=== PATIENT | female | born 1975 | race Caucasian/White ===

== ENCOUNTER 2017-03-30 15:58 | Emergency (ER) | payer BC ==
[~2017-03-30] VITALS: Ht 165.1 cm; Wt 127.0 kg
[2017-03-30] MEDS ORDERED: Ketorolac 30mg Inj IM ONE (16:15)
[2017-03-30] MEDS ORDERED: DiphenhydrAMINE 50mg/ml Inj IM ONE (16:15)
[2017-03-30] MEDS ORDERED: Metoclopramide 10mg/2ml Inj IM ONE (16:15)
[2017-03-30 17:28] VITALS: BP 129/83
[2017-03-30] MEDS ORDERED: ZOFRAN4 M3 ORAL (17:43)
[2017-03-30] MEDS ORDERED: IBUPROFEN600 MG ORAL (17:43)
[2017-03-30 17:55] VITALS: BP 129/83
--- NOTE | 2017-03-30 21:12 | Emergency Room Report ---
History of Present Illness General Chief Complaint: Headache Source: Patient Present Illness HPI The patient is a 41-year-old female with a history of migraine headaches presenting for headache x 2 days. Described as a 9/10 throbbing sensation to the right side of the head as well as the right eye. She admits to photophobia. She states that this does feel like migraines in the past which is usually resolved with Tylenol but has not helped today. Pain does not radiate. She denies falling or any trauma. She denies any other symptoms including nausea, vomiting, fever, chills, neck pain or stiffness, CP, SOB Allergies: Coded Allergies: No Known Allergies (Unverified , 03/30/17) Patient History Past Medical History: see triage record Pertinent Family History: none Last Menstrual Period: 03/10/17 Now: No Reviewed Nursing Documentation: PMH: Agreed, PSxH: Agreed Nursing Documentation-PMH Past Medical History: No History, Except For Review of Systems All Other Systems: negative except mentioned in HPI Physical Exam Vital Signs Date Time Temp Pulse Resp B/P Pulse Ox O2 Delivery O2 Flow Rate FiO2 03/30/17 16:05 98.2 70 18 129/83 100 Room Air Sp02 EP Interpretation: reviewed, normal General Appearance: no apparent distress, alert, GCS 15, non-toxic Head: normocephalic, atraumatic Eyes: bilateral eye PERRL, bilateral eye normal inspection ENT: hearing grossly normal, normal pharynx, no angioedema, normal voice, uvula midline Neck: full range of motion, supple/symm/no masses Respiratory: chest non-tender, lungs clear, normal breath sounds, speaking full sentences Musculoskeletal: back normal, gait/station normal, normal range of motion, non- tender Neurologic: alert, oriented x3, responsive, motor strength/tone normal, sensory intact, normal gait, speech normal Psychiatric: judgement/insight normal, memory normal, mood/affect normal, no suicidal/homicidal ideation Skin: normal color, no rash, warm/dry, well hydrated Lymphatic: no adenopathy Medical Decision Making PA Attestation Dr. Gage is my supervising physician. Patient management was discussed with my supervising physician Diagnostic Impression: Primary Impression: Migraine Qualified Codes: G43.909 - Migraine, unspecified, not intractable, without status migrainosus ER Course The patient is a 41-year-old female with a history of migraine headaches presenting for headache Differential diagnoses include but not limited to Migraine, tension headache, cluster ARELLANO, ICH PE:vitals WNL. NAD A&Ox4 Head NC/AT. Non tender. PERRL. EOMI. Neck is soft and supple. Full AROM. Non tender. The patient is given IM Toradol, Benadryl, and Reglan and states that pain has completely resolved. She will be discharged home with a prescription for motrin and zofran and will FU with PMD. ER precautions given Last Vital Signs Date Time Temp Pulse Resp B/P Pulse Ox O2 Delivery O2 Flow Rate FiO2 03/30/17 17:55 98.2 18 129/83 100 Room Air 03/30/17 16:05 70 Status: improved Disposition: HOME, SELF-CARE Condition: Improved Scripts Ondansetron* (ZOFRAN*) 4 Mg Tablet 4 MG ORAL Q6H Y for Nausea & Vomiting, #10 TAB Prov: CESAR CHU.A. 03/30/17 Ibuprofen* (MOTRIN*) 600 Mg Tablet 600 MG ORAL Q6H Y for For Pain, #30 TAB Prov: CESAR CHU P.A. 03/30/17 Referrals: [facility],REFERRING (PCP) Patient Instructions: Migraine Headache Additional Instructions: I discussed my findings with the patient. All questions and concerns have been answered. Treatment and medication compliance have been addressed. I advised the patient that they need to follow up with PMD in 3-5 days. Return to ED if symptoms worsen, new symptoms arise such as fever, neck pain, dizziness, or if needed for any reason. Patient verbalized understanding of discharge instructions. CESAR CHU March 30, 2017 21:12
== END 2017-03-30 17:55 | disposition home or self-care (01) ==
LOC: EMR 17:54
DX: G43.909 Migraine, unspecified, not intractable, without status migrainosus (principal)
CPT/HCPCS: 96372; 99284; J1200; J1885; J2765; 99283

== ENCOUNTER 2017-12-12 22:26 | Emergency (ER) | payer BC ==
[~2017-12-12] VITALS: Ht 165.1 cm; Wt 127.0 kg
[~2017-12-12 22:26] MED LIST: IBUPROFEN600 MG ORAL; ZOFRAN4 M3 ORAL
[2017-12-12] MEDS ORDERED: CYMBALTA30 MG ORAL (22:39)
[2017-12-12 23:10] VITALS: BP 162/96
[2017-12-12] MEDS ORDERED: Metoclopramide 10mg/2ml Inj ONE (23:10)
[2017-12-12] MEDS ORDERED: Ketorolac 30mg Inj IM ONE (23:15)
[2017-12-12] MEDS ORDERED: DiphenhydrAMINE 50mg/ml Inj IM ONE (23:15)
[2017-12-13 00:20] VITALS: BP 143/87
[2017-12-13] MEDS ORDERED: FIORICET1 EA ORAL (00:20)
[2017-12-13 00:35] VITALS: BP 143/87
--- NOTE | 2017-12-13 01:44 | Emergency Room Report ---
History of Present Illness General Chief Complaint: Headache Source: Patient Present Illness HPI 42-year-old female presents ED for evaluation. Patient states having migraine headache for the last few days. Typical of her migraine but this time unrelieved with [id number] medication. Throbbing, 8/10, nonradiating. In the back of her head which is typical. Denies any neck stiffness. Denies any fevers or chills. Denies photophobia or blurry vision. Denies nausea or vomiting. No other aggravating relieving factors. Denies any other associated symptoms Allergies: Coded Allergies: No Known Allergies (Unverified , 03/30/17) Patient History Past Medical History: none Past Surgical History: none Pertinent Family History: none Social History: Denies: smoking, alcohol use, drug use Last Menstrual Period: 11/28/17 Now: No Immunizations: UTD Reviewed Nursing Documentation: PMH: Agreed, PSxH: Agreed Nursing Documentation-PMH Past Medical History: No History, Except For Hx Cardiac Problems: No - Migraines Review of Systems All Other Systems: negative except mentioned in HPI Physical Exam Vital Signs Date Time Temp Pulse Resp B/P (MAP) Pulse Ox O2 Delivery O2 Flow Rate FiO2 12/12/17 22:34 97.9 81 15 162/96 97 Room Air Sp02 EP Interpretation: reviewed, normal General Appearance: no apparent distress, alert, GCS 15, non-toxic, obese Head: normocephalic, atraumatic Eyes: bilateral eye normal inspection, bilateral eye PERRL ENT: hearing grossly normal, normal pharynx, no angioedema, normal voice Neck: full range of motion, supple, no meningismus, supple/symm/no masses Respiratory: chest non-tender, lungs clear, normal breath sounds, speaking full sentences Cardiovascular #1: regular rate, rhythm, no edema Cardiovascular #2: 2+ carotid (R), 2+ carotid (L), 2+ radial (R), 2+ radial (L) , 2+ dorsalis pedis (R), 2+ dorsalis pedis (L) Gastrointestinal: normal bowel sounds, non tender, soft, non-distended, no guarding, no rebound Rectal: deferred Genitourinary: normal inspection, no CVA tenderness Musculoskeletal: back normal, gait/station normal, normal range of motion, non- tender Neurologic: alert, oriented x3, responsive, motor strength/tone normal, sensory intact, speech normal Psychiatric: judgement/insight normal, memory normal, mood/affect normal, no suicidal/homicidal ideation Reflexes: 3+ bicep (R), 3+ bicep (L), 3+ tricep (R), 3+ tricep (L), 3+ knee (R) , 3+ knee (L) Skin: normal color, no rash, warm/dry, well hydrated Lymphatic: no adenopathy Medical Decision Making Diagnostic Impression: Primary Impression: Migraine Qualified Codes: G43.909 - Migraine, unspecified, not intractable, without status migrainosus ER Course Hospital Course 42-year-old female presents to ED complaining of headaches, h/o migraine Differential diagnoses include: tension headache, migraine, dehydration, intracranial bleed Clinical course Patient placed on stretcher. After initial history and physical I ordered Reglan, Toradol and Benadryl. Upon reassessment patient states pain has improved. Patient feels better wishes to go home. Given the lack of fever, nuchal rigidity or neurological findings my suspicion for intracranial pathology is low patient be safely discharged to home. i. I feel this is a highly complex case requiring extensive working including EKG/Rhythm strip, Xray/CT/US, Blood/urine lab work, repeat exams while in ED, and administration of strong opiates/narcotics for pain control, admission to hospital or close patient follow up. Diagnosis - migraine stable and discharged to home with Rx Fiorcet. f/up with PMD. return to ED if symptoms recur/worsen. Last Vital Signs Date Time Temp Pulse Resp B/P (MAP) Pulse Ox O2 Delivery O2 Flow Rate FiO2 12/13/17 00:35 97.9 72 15 143/87 97 Room Air Status: improved Disposition: HOME, SELF-CARE Condition: Stable Scripts Acetamin/Butalbital/Caffeine* (FIORICET*) 1 Ea Tab 1 TAB ORAL Q4H, #20 TAB Prov: KISHAN WAGNER M.D. 12/13/17 Patient Instructions: Migraine Headache KISHAN WAGNER M.D. Dec 13, 2017 01:44
== END 2017-12-13 00:35 | disposition home or self-care (01) ==
LOC: EMR 23:05
DX: G43.909 Migraine, unspecified, not intractable, without status migrainosus (principal)
CPT/HCPCS: 96372; 99284; J1200; J1885; J2765

== ENCOUNTER 2017-12-14 10:20 | Emergency (ER) | payer BC ==
[~2017-12-14] VITALS: Ht 165.1 cm; Wt 127.0 kg
[~2017-12-14 10:20] MED LIST changes: +CYMBALTA30 MG ORAL; +FIORICET1 EA ORAL
--- NOTE | 2017-12-14 10:58 | Emergency Room Report ---
History of Present Illness General Chief Complaint: Headache Source: Patient, Medical Record Present Illness HPI 42-year-old female p/w ARELLANO for 1 days. Patient describes ARELLANO as gradual in onset, throbbing in nature, localized to right-sided head, non-radiating, constant, mild/moderate in severity. NO photophobia, phonophobia. Patient has a history of headaches and states this ARELLANO feels similar to previous episodes. States that she has been supposed to see a neurologist but hasn't been able to see him. Denies fever, chills, neck pain, blurry vision, motor/sensory weakness. States that she was seen in the emergency room not to long ago, felt better after IM medication, states that she went to work today, had a great deal of stress, which triggered her headache again Allergies: Coded Allergies: No Known Allergies (Unverified , 03/30/17) Patient History Past Medical History: see triage record Past Surgical History: none Pertinent Family History: none Last Menstrual Period: Three weeks ago Now: No Reviewed Nursing Documentation: PMH: Agreed, PSxH: Agreed Review of Systems All Other Systems: negative except mentioned in HPI Physical Exam Vital Signs Date Time Temp Pulse Resp B/P (MAP) Pulse Ox O2 Delivery O2 Flow Rate FiO2 12/14/17 10:22 97.8 86 24 136/79 100 Room Air 97.9 Sp02 EP Interpretation: reviewed, normal General Appearance: normal inspection, well appearing, no apparent distress, alert, GCS 15, non-toxic Head: normocephalic, atraumatic Eyes: bilateral eye normal inspection, bilateral eye PERRL, bilateral eye EOMI ENT: normal ENT inspection, normal pharynx, normal voice, moist mucus membranes Neck: normal inspection, full range of motion, supple Respiratory: normal inspection, lungs clear, normal breath sounds, no respiratory distress, no retraction, no wheezing, speaking full sentences, chest symmetrical Cardiovascular #1: normal inspection, regular rate, rhythm, no edema, normal capillary refill Cardiovascular #2: 2+ radial (R), 2+ radial (L) Gastrointestinal: normal inspection, non tender, soft, non-distended, no guarding Musculoskeletal: normal inspection, back normal, normal range of motion, non- tender Neurologic: normal inspection, alert, oriented x3, responsive, cnc technician III-XII nml as tested, motor strength/tone normal, sensory intact, normal gait, speech normal Psychiatric: normal inspection, judgement/insight normal, memory normal Skin: normal inspection, normal color, no rash, warm/dry, well hydrated, normal turgor Medical Decision Making Diagnostic Impression: Primary Impression: Headache ER Course 42-year-old female with headache Well-appearing, no neurological signs or symptoms DDX: Primary ARELLANO such as migraine, tension ARELLANO, cluster. vs. dehydration Other serious diagnoses on differential such as intracranial bleed/sah, meningitis/encephalitis, tumor, however patients H&P is more consistent with benign etiology at this time. There are no neurological signs/symptoms/findings on physical exam and patient appears nontoxic. Plan: Pain control ER course: Patient feels much better with meds. Patient continues to appear nontoxic, aox3, no neurologic symptoms. Disposition: Patient will be discharged to home. Patient instructed to follow up with primary care doctor within 5 days. Patient also instructed to follow up with a neurologist within 1 week. Strict return precautions discussed with patient such as severe/worsening headache, nausea, vomiting, fever chills, neck pain. Patient verbalized understanding. Please note that this Emergency Department Report was dictated using [employer] technical systems specialist technology software, occasionally this can lead to erroneous entry secondary to interpretation by the dictation equipment. Last Vital Signs Date Time Temp Pulse Resp B/P (MAP) Pulse Ox O2 Delivery O2 Flow Rate FiO2 12/14/17 10:22 97.8 86 24 136/79 100 Room Air 97.9 Disposition: HOME, SELF-CARE Condition: Improved Patient Instructions: General Headache Without Cause Additional Instructions: PLEASE SEE A NEUROLOGIST IN 1 WEEK Flory Chavez M.D. Dec 14, 2017 10:58
[2017-12-14] MEDS ORDERED: Ketorolac 30mg Inj IM ONE (11:00)
[2017-12-14] MEDS ORDERED: DiphenhydrAMINE 50mg/ml Inj IM ONE (11:00)
[2017-12-14 11:44] VITALS: BP 132/81
[2017-12-14 12:56] VITALS: BP 132/81
== END 2017-12-14 12:59 | disposition home or self-care (01) ==
LOC: EMR 11:42
DX: R51 Headache (principal)
CPT/HCPCS: 96372; 99284; J1200; J1885

== ENCOUNTER 2018-04-29 11:41 | Emergency (ER) | payer BC ==
[~2018-04-29] VITALS: Ht 165.1 cm; Wt 127.0 kg
[2018-04-29 12:11] VITALS: BP 156/90
--- NOTE | 2018-04-29 12:34 | Emergency Room Report ---
History of Present Illness General Chief Complaint: Multiple Trauma/Fall Source: Patient Present Illness HPI 42 YO Female presents to the ED c/o 06/11 in severity pain, tenderness, bruising , and neck muscle tightness s/p fall yesterday. Pt. describes that she sat down on a bed, when mattress collapsed through the bed-frame. pt. denies LOC. reports hitting her head on the headboard, sustaining scratch to the right UE, and bruising. pt. also reports progressive neck stiffness/ dull ache. denies midline neck or back pain. Denies numbness tingling or loss of sensation or gross motor movements of the extremities, incontinence of bowel or bladder. Denies CP, Palpitations, LOC, AMS, dizziness, Changes in Vision, weakness or a sudden severe headache. Allergies: Coded Allergies: No Known Allergies (Unverified , 03/30/17) Patient History Past Medical History: see triage record Past Surgical History: none Pertinent Family History: none Now: No Reviewed Nursing Documentation: PMH: Agreed; PSxH: Agreed Nursing Documentation-PMH Past Medical History: No History, Except For Review of Systems All Other Systems: negative except mentioned in HPI Physical Exam Vital Signs Date Time Temp Pulse Resp B/P (MAP) Pulse Ox O2 Delivery O2 Flow Rate FiO2 04/29/18 12:00 98.7 81 16 156/90 100 Room Air 98.8 Sp02 EP Interpretation: reviewed, normal General Appearance: no apparent distress, alert, GCS 15, non-toxic Head: normocephalic, atraumatic Eyes: bilateral eye normal inspection, bilateral eye PERRL ENT: hearing grossly normal, normal voice Neck: full range of motion, tender lateral - Right lateral ttp, no midline ttp. Respiratory: chest non-tender, lungs clear, normal breath sounds, speaking full sentences Cardiovascular #1: regular rate, rhythm, normal capillary refill Musculoskeletal: back normal, gait/station normal, normal range of motion, other - Bruises right UE medial aspect. , abrasion also noted on UE and the right lateral post neck. Neurologic: alert, oriented x3, responsive, motor strength/tone normal, sensory intact, speech normal, grossly normal Psychiatric: judgement/insight normal Skin: normal color, no rash, warm/dry, well hydrated, abrasions Lymphatic: no adenopathy Medical Decision Making PA Attestation Dr. judge is my supervising Physician whom patient management has been discussed with. Diagnostic Impression: Primary Impression: Contusion Qualified Codes: S40.021A - Contusion of right upper arm, initial encounter Additional Impressions: Muscle strain Muscle spasm ER Course 42 YO Female presents to the ED c/o 06/11 in severity pain, tenderness, bruising , and neck muscle tightness s/p fall yesterday. Pt. describes that she sat down on a bed, when mattress collapsed through the bed-frame. pt. denies LOC. reports hitting her head on the headboard, sustaining scratch to the right UE, and bruising. pt. also reports progressive neck stiffness/ dull ache. denies midline neck or back pain. Denies numbness tingling or loss of sensation or gross motor movements of the extremities, incontinence of bowel or bladder. Denies CP, Palpitations, LOC, AMS, dizziness, Changes in Vision, weakness or a sudden severe headache. Ddx considered but are not limited to Fracture, dislocation, contusion, Sprain/ Strain/Spasm. Vital signs: are WNL, pt. is afebrile H&PE are most consistent with Soft tissue injuries including muscle strain and spasm no suggestion of fractures or acute head injury. ORDERS: - X-ray's not performed as pt. does not have focal bony tenderness on physical exam. DISCHARGE: At this time pt. is stable for d/c to home. Will provide printed patient care instructions, and any necessary prescriptions. Care plan and follow up instructions have been discussed with the patient prior to discharge. Last Vital Signs Date Time Temp Pulse Resp B/P (MAP) Pulse Ox O2 Delivery O2 Flow Rate FiO2 04/29/18 12:11 98.8 16 156/90 100 Room Air 98.8 04/29/18 12:00 81 Disposition: HOME, SELF-CARE Condition: Stable Scripts Acetaminophen* (TYLENOL EXTRA STRENGTH*) 500 Mg Tablet 500 MG ORAL Q6H, #20 TAB 0 Refills Prov: Chen Jacobs 04/29/18 Methocarbamol* (ROBAXIN*) 500 Mg Tablet 1000 MG PO TID, #42 TAB 0 Refills Prov: Chen Jacobs 04/29/18 Patient Instructions: Contusion, [id number], Muscle Strain Additional Instructions: Take medications as directed. Follow up with a Primary Care Provider in 3-5 days, even if your symptoms have resolved. --Please review list of primary care clinics, if you do not already have a primary care provider Return sooner to ED if new symptoms occur, or current symptoms become worse. Do not drink alcohol, drive, or operate heavy machinery while taking Robaxin as this may cause drowsiness. - Please note that this Emergency Department Report was dictated using [employer] check out technology software, occasionally this can lead to erroneous entry secondary to interpretation by the dictation equipment. Chen Jacobs Apr 29, 2018 12:34
[2018-04-29] MEDS ORDERED: TYLENOL EXTRA500 MG ORAL (12:36)
[2018-04-29] MEDS ORDERED: ROBAXIN500 MG PO (12:36)
[2018-04-29 12:47] VITALS: BP 156/90
== END 2018-04-29 12:37 | disposition home or self-care (01) ==
LOC: EMR 12:33
DX: S10.93XA Contusion of unspecified part of neck, initial encounter (principal); S16.1XXA Strain of muscle, fascia and tendon at neck level, initial encounter; W06.XXXA Fall from bed, initial encounter; Y92.003 Bedroom of unspecified non-institutional (private) residence as the place of occurrence of the external cause; M62.838 Other muscle spasm
CPT/HCPCS: 99284

== ENCOUNTER 2020-03-11 12:26 | Emergency (ER) | payer BC ==
[~2020-03-11] VITALS: Ht 165.1 cm; Wt 129.3 kg
[~2020-03-11 12:26] MED LIST changes: +ROBAXIN500 MG PO; +TYLENOL EXTRA500 MG ORAL
--- NOTE | 2020-03-11 12:55 | Emergency Room Report ---
History of Present Illness General Chief Complaint: Headache Source: Patient Present Illness HPI Patient is a 44-year-old female presents after increased headache. She reports having gradual onset of symptoms. Prior history of migraine headaches in the past. Reports having previous history of depression and states that she takes Celexa as well as other medication. Denies any cough. Denies any fever. Reports having some nausea without any diarrhea. Increased photophobia. Denies any neck stiffness. No recent trauma. Denies any sick contacts at home. Denies being a smoker. Allergies: Coded Allergies: No Known Allergies (Unverified , 03/30/17) COVID-19 Screening Contact w/high risk pt: No Recent Travel to affected area: No Experienced COVID-19 symptoms?: No Patient History Last Menstrual Period: na Reviewed Nursing Documentation: PMH: Agreed; PSxH: Agreed Nursing Documentation-PM Past Medical History: No History, Except For History Of Psychiatric Problem: Yes - anxiety, Review of Systems All Other Systems: negative except mentioned in HPI Physical Exam Vital Signs Date Time Temp Pulse Resp B/P (MAP) Pulse Ox O2 Delivery O2 Flow Rate FiO2 03/11/20 12:32 98.8 80 19 157/95 (115) 99 Room Air Sp02 EP Interpretation: reviewed, normal General Appearance: normal inspection, well appearing, no apparent distress, alert, GCS 15 Head: atraumatic ENT: normal ENT inspection, hearing grossly normal, normal voice Neck: normal inspection, full range of motion, supple, no bony tend Respiratory: normal inspection, lungs clear, normal breath sounds, no respiratory distress, no retraction, no wheezing Cardiovascular #1: regular rate, rhythm, no edema Gastrointestinal: normal inspection, normal bowel sounds, non tender, soft, no guarding, no hernia Genitourinary: no CVA tenderness Musculoskeletal: normal inspection, back normal, normal range of motion Neurologic: alert, responsive, speech normal, normal inspection Psychiatric: normal inspection, judgement/insight normal, mood/affect normal Medical Decision Making Diagnostic Impression: Primary Impression: Migraine ER Course Patient presented for headache. Differential diagnosis include was not limited to migraine headache, urinary tract infection, dehydration, among others. Urinalysis ordered due to patient's complaints. She was given IV fluids as well as IV pain medication. Patient has nonfocal neurologic exam with normal DTRs. Does not appear to be in any acute distress. Headache appears to be similar to patient's prior migraine. Last Vital Signs Date Time Temp Pulse Resp B/P (MAP) Pulse Ox O2 Delivery O2 Flow Rate FiO2 03/11/20 12:32 98.8 80 19 157/95 (115) 99 Room Air Status: improved Disposition: HOME, SELF-CARE Condition: Stable Referrals: NOT CHOSEN [facility]/,REFERRING (PCP) Imer Hernandez MD March 11, 2020 12:55
[2020-03-11] MEDS ORDERED: Metoclopramide 10mg/2ml Inj IVP ONE (13:00)
[2020-03-11] MEDS ORDERED: Ketorolac 30mg Inj IV ONE (13:00)
[2020-03-11] MEDS ORDERED: DiphenhydrAMINE 50mg/ml Inj IVP ONE (13:00)
[2020-03-11] MEDS ORDERED: FIORICET1 EA ORAL (13:03)
--- NOTE | 2020-03-11 13:38 | NUR ---
ED Nurse Note: report received from jimy Burnett RN. pt is in bed resting, IVF is running. no acute distress is noted.
[2020-03-11 13:40] VITALS: BP 152/94
[2020-03-11 13:57] VITALS: BP 150/90
--- NOTE | 2020-03-11 13:57 | NUR ---
ER DISCHARGE NOTE: Patient is cleared to be discharged per ERMD, pt is aox4, on room air, with stable vital signs. pt was given dc and prescription instructions, pt was able to verbalize understanding, pt id band and iv site removed without complications. pt is able to ambulate with steady gait. pt took all belongings.
--- NOTE | 2020-03-11 13:57 | NUR ---
ED Nurse Note: urine sample sent to lab
[2020-03-11 14:51] LABS: APPEARANCE,URINE CLEAR; BILIRUBIN, URINE NEGATIVE (NEGATIVE); COLOR,URINE PALE YELLOW; GLUCOSE, URINE (UA) NEGATIVE (NEGATIVE); KETONES,URINE NEGATIVE (NEGATIVE); LEUKOCYTE ESTERASE ,URINE 1+ (NEGATIVE); NITRITE,URINE NEGATIVE (NEGATIVE); PH,URINE 6.5 (4.5-8.0); PROTEIN,URINE NEGATIVE (NEGATIVE); UROBILINOGEN,URINE NORMAL MG/DL (0.0-1.0)
== END 2020-03-11 13:57 | disposition home or self-care (01) ==
LOC: EMR 12:50
DX: G43.909 Migraine, unspecified, not intractable, without status migrainosus (principal); F32.9 Major depressive disorder, single episode, unspecified; F41.9 Anxiety disorder, unspecified; R11.0 Nausea
CPT/HCPCS: 81003; 87086; 96374; 96375; 99284; J1200; J1885; J2765; J7040